=== PATIENT | female | born 1960 | race Caucasian/White ===

== ENCOUNTER → 2016-05-10 | Outpatient (CLI) | payer MEDICARE | END | disposition home or self-care (01) | LOC: PCVCCLINIC 15:48 | PROVIDERS: ATTEND Nuclear Medicine Nuclear Cardiology | DX: I73.9 Peripheral vascular disease, unspecified (principal); I25.10 Atherosclerotic heart disease of native coronary artery without angina pectoris; I48.91 Unspecified atrial fibrillation; I25.5 Ischemic cardiomyopathy; E11.9 Type 2 diabetes mellitus without complications; I10 Essential (primary) hypertension; E78.00 Pure hypercholesterolemia, unspecified | CPT/HCPCS: G0463 ==

== ENCOUNTER → 2016-05-17 | Outpatient (CLI) | payer MEDICARE, MEDICAID ==
[~2016-05-17] MED LIST: ASPIRIN 325 MG TABLET ONE; CEFAZOLIN 2GM PREMIX 0 ML IV ONE; CLOPIDOGREL BISULFATE 75 MG TABLET ONE; DIAZEPAM 10 MG TABLET ONE; FENTANYL PF 100 MCG/2 ML VIAL. ONE; HEPARIN 5,000 UNIT/ML VIAL for PCVC ONE; HYDROCODONE/APAP 5/325MG TABLET. ONE; IV NORMAL SALINE 1000ML BAG 1,000 ML ONE; MIDAZOLAM HCL 2 MG/2 ML VIAL. ONE; hydrALAZINE 20 MG/ML VIAL. ONE
== END | disposition home or self-care (01) ==
LOC: PCVCINTER 07:04
PROVIDERS: ATTEND Nuclear Medicine Nuclear Cardiology
DX: I70.213 Atherosclerosis of native arteries of extremities with intermittent claudication, bilateral legs (principal); I70.92 Chronic total occlusion of artery of the extremities; I70.1 Atherosclerosis of renal artery; I70.0 Atherosclerosis of aorta; I15.0 Renovascular hypertension; I25.10 Atherosclerotic heart disease of native coronary artery without angina pectoris; I48.91 Unspecified atrial fibrillation; I25.5 Ischemic cardiomyopathy; E11.9 Type 2 diabetes mellitus without complications; I10 Essential (primary) hypertension; E78.00 Pure hypercholesterolemia, unspecified; F17.200 Nicotine dependence, unspecified, uncomplicated
CPT/HCPCS: 36246; 36252; 75716; 76937; C1751; C1760; C1769; C1894; J2250; J3010; J7030; J0360; J0690; J1644

== ENCOUNTER → 2016-06-22 | Outpatient (CLI) | payer MEDICARE, MEDICAID | END | disposition home or self-care (01) | LOC: PCVCIMAG 11:24 | PROVIDERS: ATTEND Nuclear Medicine Nuclear Cardiology | DX: I70.211 Atherosclerosis of native arteries of extremities with intermittent claudication, right leg (principal); I25.10 Atherosclerotic heart disease of native coronary artery without angina pectoris; I48.91 Unspecified atrial fibrillation; I25.5 Ischemic cardiomyopathy; E11.9 Type 2 diabetes mellitus without complications; I10 Essential (primary) hypertension; E78.00 Pure hypercholesterolemia, unspecified | CPT/HCPCS: 93926; G0463 ==

== ENCOUNTER → 2016-11-20 | Outpatient (CLI) | payer MEDICAID, MEDICARE ==
--- NOTE | 2016-11-20 16:51 | PCVCIMAG ---
APPROVED REPORT Study performed: 11/20/2016 13:04:01 EXAM: Comprehensive 2D, Doppler, and color-flow Echocardiogram Patient Location: Echo lab Status: routine Other Information Study Quality: Adequate Technically limited study due to lung disease. Risk Factors: Cardiac Risk Factors: SOB, Smoking, HTN Indications COPD CAD Ischemic Cardiomyopathy 2D Dimensions LVEF(%): 32.33 (>50%) IVSd: 9.68 (7-11mm) LVDd: 50.74 mm PWd: 6.30 (7-11mm) LVDs: 42.94 (25-40mm) Left Atrium: 50.49 (27-40mm) Aortic Root: 28.18 mm LV Single Plane 4CH: 57.52 % LV Single Plane 2CH: 54.88 %[place]ow[place]'s LVEF: 56.20 % Biplane EF: 59.0 % Volumes Left Atrial Volume (Systole) Single Plane 4CH: 67.80 mLSingle Plane 2CH: 71.55 mL LA ESV Index: 48.00 mL/m2 Aortic Valve AoV Peak Mau.: 2.01 m/s AO Peak Gr.: 16.47 mmHgLVOT Max P.90 mmHg LVOT Max V: 0.99 m/s Mitral Valve E/A Ratio: 0.9 MV Decel. Time: 194.96 ms MV E Max Mau.: 1.30 m/s MV A Mau.: 1.44 m/s MV PHT: 56.54 ms MVA (PHT): 3.42 cm2 IVRT: 93.43 ms Pulmonary Valve PV Peak Mau.: 1.27 m/sPV Peak Gr.: 6.46 mmHg Pulmonary Vein P Vein S: 0.73 m/sP Vein A: 0.27 m/s P Vein D: 0.92 m/sP Vein A Dur.: 100.3 msec P Vein S/D Ratio: 0.79 Tricuspid Valve TR Peak Mau.: 3.27 m/s TR Peak Gr.: 42.71 mmHg Left Ventricle The left ventricle is normal size. There is normal LV segmental wall motion. There is normal left ventricular wall thickness. Left ventricular systolic function is normal. Fixed basal inferior akinesis from prior [place]. LVEF is 50% Grade I - abnormal relaxation pattern. Right Ventricle The right ventricle is normal size. The right ventricular systolic function is normal. Atria Left atrium is moderate to severely dilated. Right atrium is moderately dilated. Aortic Valve The aortic valve is normal in structure. Mild aortic regurgitation. There is no aortic valvular stenosis. Mitral Valve Redundant, calcified mitral valve leaflets. Moderate eccentric mitral regurgitation. has incr from last exam No evidence of mitral valve stenosis. Tricuspid Valve The tricuspid valve is normal in structure. Moderate tricuspid regurgitation with PAP of 53 mmHg. Pulmonic Valve The pulmonary valve is normal in structure. There is no pulmonic valvular regurgitation. Great Vessels The aortic root is normal in size. IVC is normal in size and collapses with >50% inspiration Pericardium There is no pericardial effusion. <Conclusion> There is normal left ventricular wall thickness. Left ventricular systolic function is normal. Fixed basal inferior akinesis from prior [place]. LVEF is 50% Grade I - abnormal relaxation pattern. The right ventricle is normal size. Left atrium is moderate to severely dilated. Right atrium is moderately dilated. Mild aortic regurgitation. Redundant, calcified mitral valve leaflets.poss chordal rupture Moderate eccentric mitral regurgitation. Moderate eccentric mitral regurgitation. has incr from last exam There is no pericardial effusion. rec GAIL
== END | disposition home or self-care (01) ==
LOC: PCVCIMAG 12:43
PROVIDERS: ATTEND Nuclear Medicine Nuclear Cardiology
DX: I08.3 Combined rheumatic disorders of mitral, aortic and tricuspid valves (principal); I25.2 Old myocardial infarction; I25.5 Ischemic cardiomyopathy; J44.9 Chronic obstructive pulmonary disease, unspecified; I48.91 Unspecified atrial fibrillation; E11.9 Type 2 diabetes mellitus without complications; I73.9 Peripheral vascular disease, unspecified; E78.00 Pure hypercholesterolemia, unspecified; M19.90 Unspecified osteoarthritis, unspecified site; Z72.0 Tobacco use; Z95.1 Presence of aortocoronary bypass graft; Z79.4 Long term (current) use of insulin; Z79.82 Long term (current) use of aspirin; Z88.0 Allergy status to penicillin
CPT/HCPCS: 80061; 93005; 93306; G0463

== ENCOUNTER → 2016-11-21 | Outpatient (CLI) | payer MEDICARE ==
[~2016-11-21] MED LIST changes: -ASPIRIN 325 MG TABLET ONE; +BENZOCAINE ONE 20% MUCOSAL SPRAY.; -CEFAZOLIN 2GM PREMIX 0 ML IV ONE; -CLOPIDOGREL BISULFATE 75 MG TABLET ONE; -DIAZEPAM 10 MG TABLET ONE; -FENTANYL PF 100 MCG/2 ML VIAL. ONE; -HEPARIN 5,000 UNIT/ML VIAL for PCVC ONE; -HYDROCODONE/APAP 5/325MG TABLET. ONE; +IOHEXOL 350 MG/ML 100 ML VIAL. ONE; +IOHEXOL 350 MG/ML 50 ML VIAL. ONE; +LIDOCAINE 1% Multi-Dose 20 ML VIAL. ONE; +METOPROLOL TARTRATE 5 MG/5 ML VIAL. ONE; -MIDAZOLAM HCL 2 MG/2 ML VIAL. ONE; +MIDAZOLAM HCL/PF 2 MG/2 ML VIAL. ONE; +fentaNYL PF VIAL 100 MCG/2 ML VIAL ONE
--- NOTE | 2016-11-21 16:36 | PCVCIMAG ---
APPROVED REPORT Study performed: 11/21/2016 11:06:23 EXAM: Comprehensive 2D, Doppler, and color-flow Echocardiogram Patient Location: Angio Room #: 1 Status: routine Other Information Study Quality: Good Indications Mitral Valve Disease Mitral Regurgitation, CAD, Ischemic Cardiomyopathy Procedure After obtaining informed consent, patient underwent transesophageal echo in the [employer] [facility]. Type of Sedation : Conscious Sedation Sedation was administered by Karen Kirk RN. Sedation was achieved intravenously with: Versed (4) Fentanyl (100) Transesophageal probe was inserted and advanced into esophagus without difficulty by Juan R Greenwood MD. Echo enhancement indication: R/O Septal defect. Echo enhancement agent administered: Agitated Saline The GAIL was performed without complications. Throughout the procedure, the blood pressure, pulse oximetry, cardiac rhythm, and rate were monitored. The patient tolerated the procedure without adverse effects. Recovery from conscious sedation was uneventful and vital signs were stable. Left Ventricle The left ventricle is normal size. Inferior and inferoseptal hypokinesis There is normal left ventricular wall thickness. Left ventricular systolic function is normal. LVEF is 50-55%. Right Ventricle The right ventricle is normal size. The right ventricular systolic function is normal. Atria The left atrium is enlarged Interatrial septum is intact without evidence of ASD or PFO. The right atrium size is normal. Aortic Valve The aortic valve is trileaflet, mildly sclerotic Mild aortic regurgitation is present. There is no aortic valvular stenosis. Mitral Valve Tethered posterior mitral leaflet with malcoaptation. Small posterior leaflet disrupted segment with associated very eccentric, moderately severe mitral insufficiency No evidence of mitral valve stenosis. Tricuspid Valve The tricuspid valve is normal in structure. There is no tricuspid valve regurgitation noted. Pulmonic Valve The pulmonary valve is normal in structure. There is no pulmonic valvular regurgitation. Great Vessels The aortic root is normal in size. Pericardium There is no pericardial effusion. <Conclusion> Left ventricular systolic function is normal. LVEF is 50-55%. Basal inferior and inferoseptal hypokinesis The left atrium is enlarged. No masses or clots in left atrium or appendage. No shunting by contrast bubble injection The aortic valve is trileaflet, mildly sclerotic, mild aortic regurgitation, no stenosis Tethered posterior mitral leaflet with malcoaptation. Small posterior leaflet disrupted segment with associated very eccentric, moderately severe mitral insufficiency There is no pericardial effusion.
--- NOTE | 2016-11-22 18:50 | PCVCINTER ---
APPROVED REPORT Patient Details Patient Status: Out-Patient Room #: 1 The patient is a 56 year-old female Event Personnel Eunice Gonzalez RT(R)(), Hali Resendez RT(R), Karen Kirk RN Risk Factors Dysplipidemia , Peripheral Vascular Disease, Chronic Lung DiseaseHypercholesterolemia, Diabetes Last Creatanine 0.7Tobacco History () Procedure Narrative The patient was brought electively to the Cardiac Catheterization Laboratory and was prepped and draped in a sterile manner. The right femoral was infiltrated with 1% Lidocaine subcutaneous anesthesia. A Right Heart Catheterization was performed with a 7 Fr. [place] catheter and pressure were recorded. Cardiac outputs were obtained by the Thermal Dilution method. A 6 fr sheath was inserted into the right femoral artery. Coronary angiography was performed using coronary diagnostic catheters. The right coronary system was accessed and visualized with a JR4 Diagnostic catheter. The left coronary system was accessed and visualized with a JL4 Diagnostic catheter. The left ventricle was accessed and visualized with a PIGTAIL Diagnostic catheter. Left ventriculogram was performed in [place] projection. An aortogram of the abdominal aorta was performed. Pre-demployment femoral angiogram was performed . Closure device was deployed with a 6 Fr Mynx. Hemostasis was obtained with manual pressure following sheath removal without any complications. The patient tolerated the procedure well and there were no complications associated with the procedure. There was no hematoma. Fluoro Time: 4.2 minutes Dose: DAP 2919.5 cGycm2 316 mGy Contrast Type and Amount: OMNI 350 95ML Hemodynamics The right atrial mean pressure is 15/15 (15) mmHg. The right ventricular pressure is 43/27 (25) mmHg. The pulmonary artery pressure is 40/31 mmHg with a mean of 35 mmHg. The mean pulmonary capillary wedge pressure is 20 mmHg. The aortic pressure is 122/76 mmHg with a mean of 100 mmHg. The left ventricular pressure is 128/-4 mmHg with a mean of 8 mmHg. The cardiac output using thermo method is 4.07 L/min. The cardiac index using thermo method is 2.50 L/min/m2. Conclusion #1 normal left ventricular size with inferior basilar hypokinesis and 3+ mitral regurgitation EF 50-55% #2 abdominal aorta intact no aneurysm single renal arteries and iliac system mild plaquing no occlusive disease #3 left main long and free of disease giving rise to LAD and a circumflex that occludes #4 nondominant circumflex with mild disease #5 proximal LAD closure. #6 ZAMORA to LAD intact filling the LAD diffusely diseased around the apex #7 diagonal branch which fills proximal to LAD occlusion. Is mildly diseased #8 dominant right is occluded previous multiple stents occluded the PDA and CRISTHIAN is still needed diffuse septal perforators from the left system and the LAD. #9 successful right heart catheterization with moderate elevations in pulmonary artery pressure and mean pulmonary capillary wedge pressure
== END | disposition home or self-care (01) ==
LOC: PCVCINTER 09:27
PROVIDERS: ATTEND Internal Medicine Cardiovascular Disease
DX: I25.10 Atherosclerotic heart disease of native coronary artery without angina pectoris (principal); I34.0 Nonrheumatic mitral (valve) insufficiency; I25.5 Ischemic cardiomyopathy; I73.9 Peripheral vascular disease, unspecified; E78.5 Hyperlipidemia, unspecified; E78.00 Pure hypercholesterolemia, unspecified; E11.9 Type 2 diabetes mellitus without complications
CPT/HCPCS: 93312; 93325; 93460; 99152; 99153; C1751; C1760; C1769; C1894; J0360; J1644; J2250; J3010; J3490; J7030; Q9967

== ENCOUNTER → 2017-01-24 | Outpatient (CLI) | payer MEDICARE | END | disposition home or self-care (01) | LOC: PCVCCLINIC 13:37 | PROVIDERS: ATTEND Internal Medicine Cardiovascular Disease | DX: I25.10 Atherosclerotic heart disease of native coronary artery without angina pectoris (principal); I34.0 Nonrheumatic mitral (valve) insufficiency; I10 Essential (primary) hypertension; I73.9 Peripheral vascular disease, unspecified; E78.00 Pure hypercholesterolemia, unspecified; M19.90 Unspecified osteoarthritis, unspecified site; E11.9 Type 2 diabetes mellitus without complications; Z95.1 Presence of aortocoronary bypass graft; Z72.0 Tobacco use; Z79.4 Long term (current) use of insulin; Z79.899 Other long term (current) drug therapy; Z88.0 Allergy status to penicillin | CPT/HCPCS: G0463 ==

== ENCOUNTER → 2017-02-12 | Outpatient (CLI) | payer MEDICARE | END | disposition home or self-care (01) | LOC: PCVCCLINIC 12:52 | PROVIDERS: ATTEND Internal Medicine Cardiovascular Disease | DX: I25.810 Atherosclerosis of coronary artery bypass graft(s) without angina pectoris (principal); I10 Essential (primary) hypertension; I34.0 Nonrheumatic mitral (valve) insufficiency; I48.0 Paroxysmal atrial fibrillation; E78.00 Pure hypercholesterolemia, unspecified; F17.200 Nicotine dependence, unspecified, uncomplicated; I51.7 Cardiomegaly; R94.31 Abnormal electrocardiogram [ECG] [EKG]; Z79.899 Other long term (current) drug therapy; Z79.82 Long term (current) use of aspirin | CPT/HCPCS: 80061; 93005; G0463 ==

== ENCOUNTER → 2017-06-18 | Outpatient (CLI) | payer MEDICARE | END | disposition home or self-care (01) | LOC: PCVCIMAG 12:22 | DX: I08.8 Other rheumatic multiple valve diseases (principal); I25.10 Atherosclerotic heart disease of native coronary artery without angina pectoris; I25.5 Ischemic cardiomyopathy; I10 Essential (primary) hypertension; E78.00 Pure hypercholesterolemia, unspecified; I73.9 Peripheral vascular disease, unspecified; I48.0 Paroxysmal atrial fibrillation; E11.9 Type 2 diabetes mellitus without complications; F17.200 Nicotine dependence, unspecified, uncomplicated; Z95.1 Presence of aortocoronary bypass graft; Z79.899 Other long term (current) drug therapy; Z79.82 Long term (current) use of aspirin; Z79.4 Long term (current) use of insulin | CPT/HCPCS: 80061; 93005; 93306; G0463 ==

== ENCOUNTER → 2018-06-12 | Outpatient (CLI) | payer MEDICARE ==
--- NOTE | 2018-06-12 16:53 | PCVCIMAG ---
APPROVED REPORT Study performed: 06/12/2018 16:07:29 EXAM: Comprehensive 2D, Doppler, and color-flow Echocardiogram Patient Location: Echo lab Status: routine BSA: 1.87 HR: 80 bpmBP: 134/76 mmHg Rhythm: NSR Other Information Study Quality: Adequate Risk Factors: Cardiac Risk Factors: HTN, Hyperlipidemia, DM, Smoking Indications Diabetes CAD Hypertension/HDD CABG, Ischemic cardiomyopathy, Pre op Lung mass 2D Dimensions IVSd: 9.76 (7-11mm)LVOT Diam: 18.97 (18-24mm) LVDd: 51.54 mm PWd: 8.82 (7-11mm)Ascending Ao: 29.26 (22-36mm) LVDs: 38.57 (25-40mm) Left Atrium: 44.32 (27-40mm) Aortic Root: 22.73 mm LV Single Plane 4CH: 46.34 % LV Single Plane 2CH: 46.50 % Volumes Left Atrial Volume (Systole) Single Plane 4CH: 47.93 mLSingle Plane 2CH: 38.58 mL LA ESV Index: 24.00 mL/m2 Aortic Valve AoV Peak Mau.: 1.51 m/s AO Peak Gr.: 9.15 mmHgLVOT Max P.27 mmHg LVOT Max V: 0.53 m/s DANA Vmax: 0.99 cm2 AI Vmax: 4.17 m/s AI [place]: 5.56 m/s2 AI PHT: 217.21 ms Mitral Valve E/A Ratio: 0.9 MV Decel. Time: 161.03 ms MV E Max Mau.: 1.04 m/s MV A Mau.: 1.13 m/s TDI E/Lateral E': 20.80E/Medial E': 10.40 Medial E' Mau.: 0.10 m/s Lateral E' Mau.: 0.05 m/s Pulmonary Valve PV Peak Gr.: 3.44 mmHg Pulmonary Vein P Vein S: 0.74 m/sP Vein A: 0.25 m/s P Vein D: 0.57 m/sP Vein A Dur.: 86.5 msec P Vein S/D Ratio: 1.30 Tricuspid Valve TR Peak Mau.: 2.40 m/s TR Peak Gr.: 23.02 mmHg Left Ventricle The left ventricle is normal size. Inferior wall hypokinesis. There is normal left ventricular wall thickness. Left ventricular systolic function is mildly decreased. The left ventricular ejection fraction is within the normal range. LVEF is 40%. The left ventricular diastolic function is normal. Right Ventricle The right ventricle is normal size. The right ventricular systolic function is normal. Atria Left atrium is moderately dilated. The right atrium size is normal. Aortic Valve The aortic valve is normal in structure. Mild aortic regurgitation. There is no aortic valvular stenosis. Mitral Valve Mitral Valve Prolapse. Ecentric mild to moderate mitral regurgitation. No evidence of mitral valve stenosis. Tricuspid Valve The tricuspid valve is normal in structure. Trace tricuspid regurgitation. Pulmonary artery pressure is 30mmHg. Pulmonic Valve The pulmonary valve is normal in structure. There is no pulmonic valvular regurgitation. Great Vessels The aortic root is normal in size. IVC is normal in size and collapses >50% with inspiration. Pericardium There is no pericardial effusion. <Conclusion> The left ventricle is normal size. LVEF is 40%. Inferior wall hypokinesis. The left ventricular diastolic function is normal. The right ventricle is normal size. Left atrium is moderately dilated. Mild aortic regurgitation. Mitral Valve Prolapse. Ecentric mild to moderate mitral regurgitation. Trace tricuspid regurgitation. Pulmonary artery pressure is 30mmHg. The aortic root is normal in size. There is no pericardial effusion.
== END | disposition home or self-care (01) ==
LOC: PCVCCLINIC 14:17
PROVIDERS: ATTEND Internal Medicine Cardiovascular Disease
DX: Z01.810 Encounter for preprocedural cardiovascular examination (principal); I08.0 Rheumatic disorders of both mitral and aortic valves; I25.10 Atherosclerotic heart disease of native coronary artery without angina pectoris; I25.5 Ischemic cardiomyopathy; E78.01 Familial hypercholesterolemia; I10 Essential (primary) hypertension; R91.8 Other nonspecific abnormal finding of lung field; I48.0 Paroxysmal atrial fibrillation; I73.9 Peripheral vascular disease, unspecified; E11.9 Type 2 diabetes mellitus without complications; J44.9 Chronic obstructive pulmonary disease, unspecified; F17.200 Nicotine dependence, unspecified, uncomplicated; Z79.82 Long term (current) use of aspirin; Z79.4 Long term (current) use of insulin; Z95.1 Presence of aortocoronary bypass graft
CPT/HCPCS: 36415; 80061; 93005; 93306; G0463

== ENCOUNTER → 2018-07-23 | Outpatient (CLI) | payer MEDICARE | END | disposition home or self-care (01) | LOC: PCVCCLINIC 11:15 | PROVIDERS: ATTEND Internal Medicine Cardiovascular Disease | DX: I25.10 Atherosclerotic heart disease of native coronary artery without angina pectoris (principal); I48.0 Paroxysmal atrial fibrillation; E11.9 Type 2 diabetes mellitus without complications; I10 Essential (primary) hypertension; I25.5 Ischemic cardiomyopathy; I34.1 Nonrheumatic mitral (valve) prolapse; I73.9 Peripheral vascular disease, unspecified; R91.8 Other nonspecific abnormal finding of lung field; J44.9 Chronic obstructive pulmonary disease, unspecified; E78.00 Pure hypercholesterolemia, unspecified; M19.90 Unspecified osteoarthritis, unspecified site; Z79.82 Long term (current) use of aspirin; Z91.040 Latex allergy status; Z90.2 Acquired absence of lung [part of]; Z95.1 Presence of aortocoronary bypass graft; Z88.0 Allergy status to penicillin | CPT/HCPCS: 36415; 80061; 93005; G0463 ==

== ENCOUNTER → 2019-02-10 | Outpatient (CLI) | payer MEDICARE | END | disposition home or self-care (01) | LOC: PCVCCLINIC 15:00 | PROVIDERS: ATTEND Internal Medicine Cardiovascular Disease | DX: I25.10 Atherosclerotic heart disease of native coronary artery without angina pectoris (principal); E11.9 Type 2 diabetes mellitus without complications; I73.9 Peripheral vascular disease, unspecified; I05.1 Rheumatic mitral insufficiency; I48.0 Paroxysmal atrial fibrillation; I10 Essential (primary) hypertension; I25.5 Ischemic cardiomyopathy; J44.9 Chronic obstructive pulmonary disease, unspecified; R94.31 Abnormal electrocardiogram [ECG] [EKG]; F17.200 Nicotine dependence, unspecified, uncomplicated; Z79.82 Long term (current) use of aspirin; Z79.899 Other long term (current) drug therapy | CPT/HCPCS: 36415; 80061; 93005; G0463 ==

== ENCOUNTER → 2019-03-24 | Outpatient (CLI) | payer MEDICARE ==
[~2019-03-24] MED LIST changes: -BENZOCAINE ONE 20% MUCOSAL SPRAY.; -IOHEXOL 350 MG/ML 100 ML VIAL. ONE; -IOHEXOL 350 MG/ML 50 ML VIAL. ONE; -IV NORMAL SALINE 1000ML BAG 1,000 ML ONE; -LIDOCAINE 1% Multi-Dose 20 ML VIAL. ONE; -METOPROLOL TARTRATE 5 MG/5 ML VIAL. ONE; -MIDAZOLAM HCL/PF 2 MG/2 ML VIAL. ONE; +REGADENOSON 0.4 MG/5 ML DISP.SYRIN. IV ONE; -fentaNYL PF VIAL 100 MCG/2 ML VIAL ONE; -hydrALAZINE 20 MG/ML VIAL. ONE
--- NOTE | 2019-03-24 13:23 | PCVCIMAG ---
APPROVED REPORT Imaging Protocol: Rest Tc-99m/Stress Tc-99m 1 day Study performed: 03/24/2019 09:42:37 Indication: Afib, Ischemic Cardiomyopathy Patient Location: Out-Patient Stress Nurse: Toya Gant RN NM Tech:Alpesh Mg NMTCB Ht: 5 ft 4 in Wt: 168 lbs BSA: 1.82 m2 HR: 74 bpm BP: 177/77 mmHg BMI: 28.8 Rhythm: Sinus Rhythm Medical History Medical History: Age, HTN, PVD, Afib, Smoker, DM Insulin Medications: ASA, Carvedilol, Ramipril, Crestor, Betapace, NTG Allergies: Latex, PCN Previous Cardiac Procedures: CABG Resting Data Rest SPECT myocardial perfusion imaging was performed in supine position 45 minutes following the intravenous injection of 11.9 mCi of Tc-99m Sestamibi. Time of rest injection: 0835 Date: 03/24/2019 Administration Route: IV Administration Site: Right AC Pharmacologic Stress Pharmacologic stress test was performed by injecting Regadenoson 0.4 mg IV push over 10-15 seconds immediately followed by the intravenous injection of 33.8 mCi of Tc-99m Sestamibi. Time of stress injection: 1010 Date: 03/24/2019 Administration Route: IV Administration Site: Right AC Gated Stress SPECT was performed 45 minutes after stress injection. The images were gated to evaluate regional wall motion and calculate left ventricular ejection fraction. Stress Test Details Stress Test: Pharmacologic stress testing performed using 0.4 mg of regadenoson per 5 mL given IV over 10 seconds. Reason for pharmacologic stress test: Lung status. HRMax Heart Rate (APMHR): 163 bpm Resting HR: 74 bpmTarget HR (85% APMHR): 138 bpm Max HR Achieved: 90 bpm % of APMHR: 55 Recovery HR: 82 bpm BP Resting BP: 177/77 mmHg Max BP: 153/70 mmHg Recovery BP: 139/67 mmHg ECG Resting ECG: Sinus Rhythm Stress ECG: Sinus Rhythm Arrhythmia: PVC's Recovery ECG: Sinus Rhythm Clinical Reason for Termination: Completed protocol Stress Symptoms: Dyspnea Symptoms resolved during recovery. Stress ECG Conclusion ECG: Non-ischemic Study Quality Study: Good Study Data Post stress, the left ventricular ejection was 56%.. SSS: 2 SRS: 10 SDS: 0 TID = 0.94. Perfusion No evidence of stress induced ischemia. 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 Wall Motion Normal left ventricular size and function. There is a medium area of akinesis in the basal and mid segment of the inferior wall which is seen on the stress images as well as the resting images. Nuclear Conclusion No evidence of stress induced ischemia. 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 Post stress, the left ventricular ejection was 56%. No change since prior study dated March 2015. Interpreted by: Anup Pablo MD Electronically Approved: 03/24/2019 11:31:19 <Conclusion> ECG: Non-ischemic
== END | disposition home or self-care (01) ==
LOC: PCVCIMAG 08:10
PROVIDERS: ATTEND Internal Medicine Cardiovascular Disease
DX: I25.5 Ischemic cardiomyopathy (principal); I48.91 Unspecified atrial fibrillation; I10 Essential (primary) hypertension; E11.9 Type 2 diabetes mellitus without complications; E78.00 Pure hypercholesterolemia, unspecified; I34.0 Nonrheumatic mitral (valve) insufficiency; I34.1 Nonrheumatic mitral (valve) prolapse; J44.9 Chronic obstructive pulmonary disease, unspecified; I73.9 Peripheral vascular disease, unspecified; Z79.4 Long term (current) use of insulin; Z79.01 Long term (current) use of anticoagulants; Z95.1 Presence of aortocoronary bypass graft; Z72.0 Tobacco use; Z82.49 Family history of ischemic heart disease and other diseases of the circulatory system; Z79.82 Long term (current) use of aspirin
CPT/HCPCS: 36415; 78452; 80061; 93017; A9500; G0463; J2785